=== PATIENT | female | born 1975 | race Caucasian/White ===

== ENCOUNTER → 2017-06-09 | Outpatient (CLI) | payer BC ==
[~2017-06-09] MED LIST: 5 HTP PO; ASCO-96 PO; ASTRAGALUS PO; BIOT25005 PO; CITA10TA4 PO; LORA-439 PO; MAGNESIUM PO; MULT-516 PO; TRAM50TA2 PO; VITAMIN B 6 PO
[2017-06-09 09:45] LABS: HEMATOCRIT 41.4 % (34.6-47.8); HEMOGLOBIN 14.1 g/dL (11.7-16.4); WHITE BLOOD COUNT 4.9 x10^3/uL (3.4-10)
[2017-06-09 09:56] LABS: BLOOD UREA NITROGEN 13 mg/dL (7-18)
== END | disposition home or self-care (01) ==
LOC: STAR 08:48
PROVIDERS: ATTEND Neurological Surgery
DX: Z01.818 Encounter for other preprocedural examination (principal); M48.06 Spinal stenosis, lumbar region; R79.1 Abnormal coagulation profile
CPT/HCPCS: 36415; 71020; 80048; 84703; 85025; 85610; 85730; 93005

== ENCOUNTER 2017-06-21 10:59 | Day surgery (SDC) | payer BC ==
[~2017-06-21] VITALS: Ht 170.2 cm; Wt 56.0 kg
[~2017-06-21 10:59] MED LIST changes: +BACITRACIN 50,000 UNIT ONE; +BUPIVACAINE/PF 0.5% ONE; +EPINEPHRINE 1 MG/ML, 1ML ONE; +THROMBIN 5,000 UNIT VIAL TP ONE
[2017-06-21 11:35] LABS: HCG UR LOT HCG7030192
[2017-06-21 11:41] LABS: HCG UR OBC PASS
[2017-06-21 11:56] VITALS: BP 111/72
[2017-06-21] MEDS ORDERED: LACTATED RINGERS 1,000 ML IV SCH (11:56)
[2017-06-21] MEDS ORDERED: FENTANYL PF 100 MCG/2ML ONE ×2 (12:51)
[2017-06-21] MEDS ORDERED: MIDAZOLAM 1 MG/ML, 2ML ONE ×2 (12:51→15:54)
[2017-06-21] MEDS ORDERED: BACITRACIN 50,000 UNIT ONE (13:39)
[2017-06-21] MEDS ORDERED: ROCURONIUM 10 MG/ML ONE (14:29)
[2017-06-21] MEDS ORDERED: CEFAZOLIN 1,000 MG ONE (14:29)
[2017-06-21] MEDS ORDERED: PROPOFOL 10 MG/ML, 20ML ONE (14:29)
[2017-06-21] MEDS ORDERED: ONDANSETRON 2MG/ML, 2ML ONE (14:29)
[2017-06-21] MEDS ORDERED: DEXAMETHASONE 4 MG/ML, 1ML ONE (14:29)
[2017-06-21] MEDS ORDERED: SUCCINYLCHOLINE 20 MG/ML, 10ML ONE (14:29)
[2017-06-21] MEDS ORDERED: GLYCOPYRROLATE 0.4 MG/2 ML, 2ML ONE (14:59)
[2017-06-21] MEDS ORDERED: NEOSTIGMINE 1 MG/ML, 10ML ONE (14:59)
[2017-06-21] MEDS ORDERED: HYDROmorphone 1 MG/ML, 1ML IV PRN (15:00)
[2017-06-21] MEDS ORDERED: ACETAMINOPHEN 325 MG TABLET PO PRN (15:00)
[2017-06-21] MEDS ORDERED: hydrALAzine 20 MG/ML, 1ML IV PRN (15:00)
[2017-06-21] MEDS ORDERED: FENTANYL PF 100 MCG/2ML IV PRN (15:00)
[2017-06-21] MEDS ORDERED: MEPERIDINE/PF 25MG/0.5ML IVPush PRN (15:00)
[2017-06-21] MEDS ORDERED: HYDROcodone/APAP 7.5-325MG/15ML UDC PO PRN (15:00)
[2017-06-21] MEDS ORDERED: ONDANSETRON 2MG/ML, 2ML IVPush PRN (15:00)
[2017-06-21] MEDS ORDERED: METOPROLOL 1 MG/ML, 5ML IV PRN (15:00)
[2017-06-21] MEDS ORDERED: PROMETHAZINE 25 MG/ML, 1ML IV PRN (15:00)
[2017-06-21] MEDS ORDERED: OXYcodone 5 MG/5 ML ORAL.SOL UDC PO PRN (15:00)
[2017-06-21] MEDS ORDERED: ALBUTEROL SULFATE 2.5 MG/3 ML NPPB PRN (15:00)
[2017-06-21] MEDS ORDERED: DIAZEPAM 5 MG/ML, 2ML IVPush PRN (15:00)
[2017-06-21] MEDS ORDERED: EPHEDRINE 50 MG/ML, 1ML IVPush PRN (15:00)
[2017-06-21] MEDS ORDERED: LABETALOL 5MG/ML, 20ML IV PRN (15:00)
[2017-06-21] MEDS ORDERED: HYDROcodone/APAP 7.5-325MG/15ML UDC ONE (15:31)
[2017-06-21] MEDS ORDERED: HYDROmorphone 1 MG/ML, 1ML ONE (15:54)
[2017-06-21] MEDS: MIDAZOLAM 1 MG/ML, 2ML IV PRN ×2 (15:58→16:07)
== END 2017-06-21 19:00 ==
LOC: OUT 10:59 → EDSTATUS 13:00 → OUT 19:00
PROVIDERS: ATTEND Neurological Surgery
DX: M51.16 Intervertebral disc disorders with radiculopathy, lumbar region (principal); F41.9 Anxiety disorder, unspecified; Z87.39 Personal history of other diseases of the musculoskeletal system and connective tissue; G43.909 Migraine, unspecified, not intractable, without status migrainosus; Z98.890 Other specified postprocedural states; Z72.89 Other problems related to lifestyle
CPT/HCPCS: 63030; 72100; 81025; J0171; J0330; J0690; J1100; J1170; J2250; J2405; J2704; J2710; J3010; J3490; J7120